=== PATIENT | female | born 1970 | race African-American/Black ===

== ENCOUNTER 2018-11-21 13:35 | Inpatient (IN) | payer OTHER ==
[2018-11-21 15:24] VITALS: BMI 32.5
--- NOTE | 2018-11-21 16:39 | HP ---
CIWA Score Nausea/Vomitin-No Nausea/No Vomiting Muscle Tremors: 2 Anxiety: 3 Agitation: 2 Paroxysmal Sweats: 2 Orientation: 1-Uncertain about Date Tacttile Disturbances: 2-Mild Itch/Numbness/Burn Auditory Disturbances: 0-None Visual Disturbances: 0-None Headache: 0-None Present CIWA-Ar Total Score: 12 - Admission Criteria OASAS Guidelines: Admission for Medically Managed Detox: Requires at least one of the followin. CIWA greater than 12 2. Seizures within the past 24 hours 3. Delirium tremens within the past 24 hours 4. Hallucinations within the past 24 hours 5. Acute intervention needed for co occurring medical disorder 6. Acute intervention needed for co occurring psychiatric disorder 7. Severe withdrawal that cannot be handled at a lower level of care (continued vomiting, continued diarrhea, abnormal vital signs) requiring intravenous medication and/or fluids 8. Patient presents the following: CIWA greater than 12 Admission Criteria Met: Admission criteria met Admission ROS S - HPI Chief Complaint: " I'm tire " Allergies/Adverse Reactions: Allergies Allergy/AdvReac Type Severity Reaction Status Date / Time No Known Allergies Allergy Verified 11/21/18 15:45 History of Present Illness: 48 yo male with hx of crack / cocaine , alcohol dependence is here seeking alcohol detox, d/t withdrawal symptoms . PMHX: Asthma, vertigo, HTN, fibroids Denies suicidal / homicidal ideation or hx of suicide attempt. Denies hx of DTS, blackout so seizures Longest period of sobriety four months Exam Limitations: No Limitations - Ebola screening Have you traveled outside of the country in the last 21 days: No Have you had contact with anyone from an Ebola affected area: No Have you been sick,other than usual withdrawal symptoms: No Do you have a fever: No - Review of Systems Constitutional: No Symptoms Reported EENT: reports: Other (runny nosr) Respiratory: reports: Cough (chronic reports d/t asthma), SOB with Exertion, Other (SOB with very cold air) Cardiac: reports: No Symptoms Reported GI: reports: Diarrhea : reports: No Symptoms Reported Musculoskeletal: reports: Back Pain Integumentary: reports: Other (athletes feet) Neuro: reports: Dizziness Endocrine: reports: Intolerance to Cold, Increased Thirst, Other (enlarge thyroid) Hematology: reports: See HPI, Anemia Psychiatric: reports: Orientated x3, Anxious Other Systems: Reviewed and Negative Patient History - Patient Medical History Hx Anemia: Yes (NO MEDS) Hx Asthma: Yes Hx Chronic Obstructive Pulmonary Disease (COPD): No Hx Cancer: No Hx Cardiac Disorders: No Hx Congestive Heart Failure: No Hx Hypertension: Yes Hx Hypercholesterolemia: No Hx Pacemaker: No HX Cerebrovascular Accident: No Hx Seizures: No Hx Dementia: No Hx Diabetes: No Hx Gastrointestinal Disorders: Yes (acid reflux) Hx Liver Disease: No Hx Genitourinary Disorders: No Hx Sexually Transmitted Disorders: No Hx Renal Disease (ESRD): No Hx Thyroid Disease: No Hx Human Immunodeficiency Virus (HIV): No (NEGATIVE HX) Hx Hepatitis C: No Hx Depression: No Hx Suicide Attempt: No Hx Bipolar Disorder: No Hx Schizophrenia: No - Patient Surgical History Past Surgical History: Yes Hx Neurologic Surgery: No Hx Cataract Extraction: No Hx Cardiac Surgery: No Hx Lung Surgery: No Hx Breast Surgery: No Hx Breast Biopsy: No Hx Appendectomy: No Hx Genitourinary Surgery: No Hx Section: Yes (X 1) Hx Orthopedic Surgery: No Anesthesia Reaction: No - PPD History Previous Implant?: Yes Documented Results: Negative w/o proof Implanted On Prior [facility] Admission?: No PPD to be Administered?: Yes - Reproductive History Last Menstrual Period: 11/04/18 Patient : Yes - Smoking Cessation Smoking history: Former smoker Have you smoked in the past 12 months: Yes Aproximately how many cigarettes per day: 5 If you are a former smoker, when did you quit?: 07/21/2018 Hx Chewing Tobacco Use: No Initiated information on smoking cessation: Yes 'Breaking Loose' booklet given: 11/21/18 - Substance & Tx. History Hx Alcohol Use: Yes Hx Substance Use: Yes Hx Substance Use Treatment: Yes (Detox [facility] April 2018) - Substances Abused Crack Route: Smoking Frequency: Daily Amount used: $100 Age of first use: 18 Date of Last Use: 11/21/18 Alcohol-beer/rum/vodka Route: Oral Frequency: Daily Amount used: 1 1/2-6 pks. or 1/2 pt. liquor Age of first use: 14 Date of Last Use: 11/21/18 Family Disease History - Family Disease History Family Disease History: Diabetes: Mother, Respiratory: Father () Admission Physical Exam BHS - Vital Signs Vital Signs: Vital Signs - 24 hr 11/21/18 15:19 Temperature 96.7 F L Pulse Rate 88 Respiratory 20 Rate Blood Pressure 140/78 - Physical General Appearance: Yes: Appropriately Dressed, Mild Distress, Obese, Anxious HEENTM: Yes: EOMI, Hearing grossly Normal, Normal ENT Inspection, Normocephalic , Normal Voice, ELYSIA, Pharynx Normal, Tm's normal, Rhinorrhea, Other (poor dentition) Respiratory: Yes: Chest Non-Tender, Lungs Clear, Normal Breath Sounds, No Respiratory Distress, No Accessory Muscle Use, Other (SOB with ambulation, no SOB at rest, reports normal status for her) Neck: Yes: Within Normal Limits Breast: Yes: Breast Exam Deferred Cardiology: Yes: Regular Rhythm, Regular Rate Abdominal: Yes: Normal Bowel Sounds, Non Tender, Soft, Protuberent Genitourinary: Yes: Within Normal Limits Musculoskeletal: Yes: Within Normal Limits Extremities: Yes: Normal Capillary Refill, Normal Inspection, Normal Range of Motion, Non-Tender Neurological: Yes: swing type lathe operator II-XII NML intact, Fully Oriented, Alert, Motor Strength 5/5, Depressed Affect Integumentary: Yes: Normal Color, Warm, Moist Lymphatic: Yes: Within Normal Limits - Diagnostic (1) Asthma Current Visit: Yes Status: Chronic Qualifiers: Asthma severity: severe Asthma persistence: persistent Asthma complication type: unspecified Qualified Code(s): J45.50 - Severe persistent asthma, uncomplicated (2) Alcohol dependence with uncomplicated withdrawal Current Visit: Yes Status: Acute (3) Cocaine dependence, uncomplicated Current Visit: Yes Status: Acute (4) GERD (gastroesophageal reflux disease) Current Visit: Yes Status: Chronic Qualifiers: Esophagitis presence: esophagitis presence not specified Qualified Code(s) : K21.9 - Gastro-esophageal reflux disease without esophagitis (5) Hypertension Current Visit: Yes Status: Chronic Qualifiers: Hypertension type: essential hypertension Qualified Code(s): I10 - Essential (primary) hypertension (6) History of anemia Current Visit: Yes Status: Suspected (7) Vertigo Current Visit: Yes Status: Chronic Cleared for Admission S - Detox or Rehab [facility] Level of Care: Medically Managed Detox Regimen/Protocol: Librium [facility] Breath Alcohol Content Breath Alcohol Content: 0 Urine Pregancy Test - Result Urine Test Results: Negative - NO Line Present Urine Drug Screen - Results Drug Screen Negative: No Urine Drug Screen Results: FAY-Cocaine Inpatient Rehab Admission - Rehab Decision to Admit Inpatient rehab admission?: No
[2018-11-21] MEDS ORDERED: chlordiazePOXIDE HCL 25 MG CAPSULE PO PRN (16:56)
[2018-11-21] MEDS ORDERED: MAGNESIUM HYDROX 2400MG/30ML ORAL SUSPENSION 30 ML CUP PO PRN (16:56)
[2018-11-21] MEDS ORDERED: MAGNESIUM CITRATE 300 ML BOTTLE PO PRN (16:56)
[2018-11-21] MEDS ORDERED: ALBUTEROL SO4 2.5/IPRATROPIUM 0.5 INH SOL 3 ML VIAL.NEB. NEB PRN (16:56)
[2018-11-21] MEDS ORDERED: ACETAMINOPHEN 325 MG TABLET (FP) PO PRN (16:56)
[2018-11-21] MEDS ORDERED: LOPERAMIDE HCL 2 MG CAPSULE PO PRN (16:56)
[2018-11-21] MEDS ORDERED: IBUPROFEN 400 MG TABLET (FP) PO PRN (16:56)
[2018-11-21] MEDS ORDERED: guaiFENesin/D-METHORPHAN HB 10 ML UNIT-DOSE CUPS PO PRN (16:56)
[2018-11-21] MEDS ORDERED: P-EPHED 60MG/TRIPROLIDI 2.5MG TABLET PO PRN (16:56)
[2018-11-21] MEDS ORDERED: MENTHOL/PHENOL 1 EACH UD MM PRN (16:56)
[2018-11-21] MEDS ORDERED: MAG HYDROX/AL HYDROX/SIMETH 30 ML UNIT-DOSE CUP PO PRN (16:56)
[2018-11-21] MEDS: ALBUTEROL SO4 8 GM HFA INHALER IH PRN ×2 (18:13→23:32)
[2018-11-21] MEDS: MELATONIN 5 MG TABLETS PO PRN (22:16)
[2018-11-21] MEDS: chlordiazePOXIDE HCL 25 MG CAPSULE PO SCH (22:16)
[2018-11-21] MEDS: THIAMINE HCL 100 MG TABLET (FP) PO SCH (22:16)
[2018-11-21] MEDS: IPRATROPIUM BROMIDE IH SCH (22:18)
[2018-11-21 23:00] LABS: URINE APPEARANCE CLEAR; URINE BILIRUBIN NEGATIVE (<2.0 mg/dL); URINE COLOR STRAW; URINE GLUCOSE (UA) 1+ (NEGATIVE); URINE KETONE NEGATIVE (NEGATIVE); URINE LEUK ESTERASE NEGATIVE (NEGATIVE); URINE NITRITE NEGATIVE (NEGATIVE); URINE PROTEIN NEGATIVE (NEGATIVE); URINE UROBILINOGEN NEGATIVE mg/dL (0.2-1.0)
[2018-11-22] MEDS: chlordiazePOXIDE HCL 25 MG CAPSULE PO SCH ×4 (06:01→22:18)
[2018-11-22] MEDS: ALBUTEROL SO4 8 GM HFA INHALER IH PRN ×2 (06:02→10:47)
[2018-11-22 10:32] LABS: ALK PHOS 76 U/L (45-117); ANION GAP 9 MMOL/L (8-16); BILIRUBIN,TOTAL 0.5 mg/dL (0.2-1); BLOOD UREA NITROGEN 11 mg/dL (7-18); CALCIUM 8.1 mg/dL (8.5-10.1); CHLORIDE 106 mmol/L (98-107); CO2 24 mmol/L (21-32); CREATININE 1.1 mg/dL (0.55-1.3); GLUCOSE,RANDOM 179 mg/dL (74-106); SGOT/AST 16 U/L (15-37); SGPT/ALT 16 U/L (13-61); SODIUM 139 mmol/L (136-145); TOT PROT 6.5 g/dl (6.4-8.2)
[2018-11-22] MEDS: RANITIDINE HCL 150 MG TABLET (FP) PO SCH (10:41)
[2018-11-22] MEDS: LORATADINE 10 MG TABLET PO SCH (10:41)
[2018-11-22] MEDS: MONTELUKAST NA 10 MG TABLET PO SCH (10:41)
[2018-11-22] MEDS: PRENATAL VITAMINS W/ FOLIC ACID TABLET (FP) PO SCH (10:43)
[2018-11-22] MEDS: PATIENT'S OWN MEDICATION (NON-FORMULARY) (Losartan/Hydrochlorothiazide [Losartan-Hctz 100- PO SCH (10:43)
[2018-11-22] MEDS: IPRATROPIUM BROMIDE IH SCH ×2 (10:48→22:18)
[2018-11-22 10:57] LABS: HEMATOCRIT 36.9 % (32.4-45.2); HEMOGLOBIN 11.5 GM/dL (10.7-15.3); MCH 23.7 pg (25.7-33.7); MCHC 31.2 g/dl (32.0-36.0); MEAN PLT VOLUME 9.1 fl (7.5-11.1); PLATELET COUNT 273 K/MM3 (134-434); RBC 4.85 M/mm3 (3.60-5.2); RDW 17.6 % (11.6-15.6); WHITE BLOOD COUNT 5.8 K/mm3 (4.0-10.0)
--- NOTE | 2018-11-22 11:46 | PN ---
[facility] CIWA - CIWA Score Nausea/Vomitin-No Nausea/No Vomiting Muscle Tremors: 2 Anxiety: 2 Agitation: 2 Paroxysmal Sweats: 1-Minimal Palms Moist Orientation: 1-Uncertain about Date Tacttile Disturbances: 0-None Auditory Disturbances: 0-None Visual Disturbances: 0-None Headache: 1-Very Mild CIWA-Ar Total Score: 9 S Progress Note (SOAP) Subjective: tremor anxiety restlessness sweating Objective: 11/22/18 12:45 Vital Signs Temperature 98.9 F 11/22/18 09:18 Pulse Rate 79 11/22/18 09:18 Respiratory Rate 18 11/22/18 09:18 Blood Pressure 111/68 11/22/18 09:18 O2 Sat by Pulse Oximetry (%) Laboratory Last Values WBC 5.8 K/mm3 (4.0-10.0) 11/22/18 07:00 RBC 4.85 M/mm3 (3.60-5.2) 11/22/18 07:00 Hgb 11.5 GM/dL (10.7-15.3) 11/22/18 07:00 Hct 36.9 % (32.4-45.2) 11/22/18 07:00 MCV 76.0 fl (80-96) L 11/22/18 07:00 MCH 23.7 pg (25.7-33.7) L 11/22/18 07:00 MCHC 31.2 g/dl (32.0-36.0) L 11/22/18 07:00 RDW 17.6 % (11.6-15.6) H 11/22/18 07:00 Plt Count 273 K/MM3 (134-434) 11/22/18 07:00 MPV 9.1 fl (7.5-11.1) 11/22/18 07:00 Sodium 139 mmol/L (136-145) 11/22/18 07:00 Potassium 4.0 mmol/L (3.5-5.1) 11/22/18 07:00 Chloride 106 mmol/L (98-107) 11/22/18 07:00 Carbon Dioxide 24 mmol/L (21-32) 11/22/18 07:00 Anion Gap 9 MMOL/L (8-16) 11/22/18 07:00 BUN 11 mg/dL (7-18) 11/22/18 07:00 Creatinine 1.1 mg/dL (0.55-1.3) 11/22/18 07:00 Creat Clearance w eGFR 52.79 (>60) 11/22/18 07:00 Random Glucose 179 mg/dL (74-106) H 11/22/18 07:00 Calcium 8.1 mg/dL (8.5-10.1) L 11/22/18 07:00 Total Bilirubin 0.5 mg/dL (0.2-1) 11/22/18 07:00 AST 16 U/L (15-37) 11/22/18 07:00 ALT 16 U/L (13-61) 11/22/18 07:00 Alkaline Phosphatase 76 U/L (45-117) 11/22/18 07:00 Total Protein 6.5 g/dl (6.4-8.2) 11/22/18 07:00 Albumin 3.0 g/dl (3.4-5.0) L 11/22/18 07:00 Urine Color Straw 11/21/18 22:45 Urine Appearance Clear 11/21/18 22:45 Urine pH 6.0 (5.0-8.0) 11/21/18 22:45 Ur Specific [place] 1.012 (1.010-1.035) 11/21/18 22:45 Urine Protein Negative (NEGATIVE) 11/21/18 22:45 Urine Glucose (UA) 1+ (NEGATIVE) H 11/21/18 22:45 Urine Ketones Negative (NEGATIVE) 11/21/18 22:45 Urine Blood Negative (NEGATIVE) 11/21/18 22:45 Urine Nitrite Negative (NEGATIVE) 11/21/18 22:45 Urine Bilirubin Negative (<2.0 mg/dL) 11/21/18 22:45 Urine Urobilinogen Negative mg/dL (0.2-1.0) 11/21/18 22:45 Ur Leukocyte Esterase Negative (NEGATIVE) 11/21/18 22:45 lab noted Assessment: 11/22/18 12:45 alcohol withdrawal sx Plan: continue detox
[2018-11-22] MEDS ORDERED: NICOTINE 21 MG/24 HOURS TOPICAL PATCH TD ONE (12:45)
[2018-11-22] MEDS: NIFEdipine E.R. 90 MG TABLET (FP) PO SCH (15:31)
[2018-11-22] MEDS: THIAMINE HCL 100 MG TABLET (FP) PO SCH (22:17)
[2018-11-22] MEDS: MELATONIN 5 MG TABLETS PO PRN (22:18)
[2018-11-23] MEDS: chlordiazePOXIDE HCL 25 MG CAPSULE PO SCH ×3 (05:37→17:45)
[2018-11-23] MEDS: NIFEdipine E.R. 90 MG TABLET (FP) PO SCH (10:34)
[2018-11-23] MEDS: MONTELUKAST NA 10 MG TABLET PO SCH (10:34)
[2018-11-23] MEDS: RANITIDINE HCL 150 MG TABLET (FP) PO SCH (10:34)
[2018-11-23] MEDS: LORATADINE 10 MG TABLET PO SCH (10:34)
[2018-11-23] MEDS: PATIENT'S OWN MEDICATION (NON-FORMULARY) (Losartan/Hydrochlorothiazide [Losartan-Hctz 100- PO SCH (10:35)
[2018-11-23] MEDS: IPRATROPIUM BROMIDE IH SCH ×2 (10:39→22:30)
[2018-11-23] MEDS: PRENATAL VITAMINS W/ FOLIC ACID TABLET (FP) PO SCH (10:39)
--- NOTE | 2018-11-23 10:45 | PN ---
[facility] CIWA - CIWA Score Nausea/Vomitin-No Nausea/No Vomiting Muscle Tremors: 2 Anxiety: 1-Mildly Anxious Agitation: 1-Slight > Activity Paroxysmal Sweats: 1-Minimal Palms Moist Orientation: 1-Uncertain about Date Tacttile Disturbances: 0-None Auditory Disturbances: 0-None Visual Disturbances: 0-None Headache: 1-Very Mild CIWA-Ar Total Score: 7 S Progress Note (SOAP) Subjective: tremor sweating headache anxiety Objective: 11/23/18 10:46 Vital Signs Temperature 97.3 F L 11/23/18 09:33 Pulse Rate 77 11/23/18 09:33 Respiratory Rate 18 11/23/18 09:33 Blood Pressure 128/75 11/23/18 09:33 O2 Sat by Pulse Oximetry (%) Laboratory Last Values WBC 5.8 K/mm3 (4.0-10.0) 11/22/18 07:00 RBC 4.85 M/mm3 (3.60-5.2) 11/22/18 07:00 Hgb 11.5 GM/dL (10.7-15.3) 11/22/18 07:00 Hct 36.9 % (32.4-45.2) 11/22/18 07:00 MCV 76.0 fl (80-96) L 11/22/18 07:00 MCH 23.7 pg (25.7-33.7) L 11/22/18 07:00 MCHC 31.2 g/dl (32.0-36.0) L 11/22/18 07:00 RDW 17.6 % (11.6-15.6) H 11/22/18 07:00 Plt Count 273 K/MM3 (134-434) 11/22/18 07:00 MPV 9.1 fl (7.5-11.1) 11/22/18 07:00 Sodium 139 mmol/L (136-145) 11/22/18 07:00 Potassium 4.0 mmol/L (3.5-5.1) 11/22/18 07:00 Chloride 106 mmol/L (98-107) 11/22/18 07:00 Carbon Dioxide 24 mmol/L (21-32) 11/22/18 07:00 Anion Gap 9 MMOL/L (8-16) 11/22/18 07:00 BUN 11 mg/dL (7-18) 11/22/18 07:00 Creatinine 1.1 mg/dL (0.55-1.3) 11/22/18 07:00 Creat Clearance w eGFR 52.79 (>60) 11/22/18 07:00 Random Glucose 179 mg/dL (74-106) H 11/22/18 07:00 Calcium 8.1 mg/dL (8.5-10.1) L 11/22/18 07:00 Total Bilirubin 0.5 mg/dL (0.2-1) 11/22/18 07:00 AST 16 U/L (15-37) 11/22/18 07:00 ALT 16 U/L (13-61) 11/22/18 07:00 Alkaline Phosphatase 76 U/L (45-117) 11/22/18 07:00 Total Protein 6.5 g/dl (6.4-8.2) 11/22/18 07:00 Albumin 3.0 g/dl (3.4-5.0) L 11/22/18 07:00 Urine Color Straw 11/21/18 22:45 Urine Appearance Clear 11/21/18 22:45 Urine pH 6.0 (5.0-8.0) 11/21/18 22:45 Ur Specific [place] 1.012 (1.010-1.035) 11/21/18 22:45 Urine Protein Negative (NEGATIVE) 11/21/18 22:45 Urine Glucose (UA) 1+ (NEGATIVE) H 11/21/18 22:45 Urine Ketones Negative (NEGATIVE) 11/21/18 22:45 Urine Blood Negative (NEGATIVE) 11/21/18 22:45 Urine Nitrite Negative (NEGATIVE) 11/21/18 22:45 Urine Bilirubin Negative (<2.0 mg/dL) 11/21/18 22:45 Urine Urobilinogen Negative mg/dL (0.2-1.0) 11/21/18 22:45 Ur Leukocyte Esterase Negative (NEGATIVE) 11/21/18 22:45 RPR Titer Nonreactive (NONREACTIVE) 11/22/18 07:00 lab noted Assessment: 11/23/18 10:47 withdrawal sx Plan: continue detox
[2018-11-23] MEDS: ALBUTEROL SO4 8 GM HFA INHALER IH PRN ×2 (17:46→22:31)
[2018-11-23] MEDS: THIAMINE HCL 100 MG TABLET (FP) PO SCH (22:26)
[2018-11-23] MEDS: chlordiazePOXIDE 5 MG CAPSULE PO SCH (22:28)
[2018-11-24] MEDS: chlordiazePOXIDE 5 MG CAPSULE PO SCH ×3 (04:44→17:26)
[2018-11-24] MEDS: PRENATAL VITAMINS W/ FOLIC ACID TABLET (FP) PO SCH (10:32)
[2018-11-24] MEDS: MECLIZINE HCL 25 MG TABLET (FP) PO PRN (10:32)
[2018-11-24] MEDS: NIFEdipine E.R. 90 MG TABLET (FP) PO SCH (10:32)
[2018-11-24] MEDS: LORATADINE 10 MG TABLET PO SCH (10:32)
[2018-11-24] MEDS: RANITIDINE HCL 150 MG TABLET (FP) PO SCH (10:32)
[2018-11-24] MEDS: MONTELUKAST NA 10 MG TABLET PO SCH (10:32)
[2018-11-24] MEDS: ALBUTEROL SO4 8 GM HFA INHALER IH PRN ×2 (10:32→23:18)
[2018-11-24] MEDS: PATIENT'S OWN MEDICATION (NON-FORMULARY) (Losartan/Hydrochlorothiazide [Losartan-Hctz 100- PO SCH (10:33)
[2018-11-24] MEDS: IPRATROPIUM BROMIDE IH SCH ×2 (10:33→22:46)
--- NOTE | 2018-11-24 14:41 | PN ---
BHS COWS - Scale Resting Pulse: 0= OK 80 or Below Sweatin= Chills/Flushing Restless Observation: 0= Sits Still Pupil Size: 0= Normal to Room Light Bone or Joint Aches: 1= Mild Discomfort Runny Nose/ Eye Tearin= Nasal Congestion GI Upset > 30mins: 0= None Tremor Observation of Outstretched Hands: 0= None Yawning Observation: 1= 1-2x During Session Anxiety or Irritability: 1=Feels Anxious/Irritable Goose Flesh Skin: 0=Smooth Skin COWS Score: 5 BHS Progress Note (SOAP) Subjective: feeling better mild body ache less tremor patient preferred to be discharged tomorrow that counselor referral aftercare is well fit to her test pending Objective: 11/24/18 14:42 Vital Signs Temperature 97.6 F 11/24/18 13:19 Pulse Rate 83 11/24/18 13:19 Respiratory Rate 18 11/24/18 13:19 Blood Pressure 128/79 11/24/18 13:19 O2 Sat by Pulse Oximetry (%) Laboratory Last Values WBC 5.8 K/mm3 (4.0-10.0) 11/22/18 07:00 RBC 4.85 M/mm3 (3.60-5.2) 11/22/18 07:00 Hgb 11.5 GM/dL (10.7-15.3) 11/22/18 07:00 Hct 36.9 % (32.4-45.2) 11/22/18 07:00 MCV 76.0 fl (80-96) L 11/22/18 07:00 MCH 23.7 pg (25.7-33.7) L 11/22/18 07:00 MCHC 31.2 g/dl (32.0-36.0) L 11/22/18 07:00 RDW 17.6 % (11.6-15.6) H 11/22/18 07:00 Plt Count 273 K/MM3 (134-434) 11/22/18 07:00 MPV 9.1 fl (7.5-11.1) 11/22/18 07:00 Sodium 139 mmol/L (136-145) 11/22/18 07:00 Potassium 4.0 mmol/L (3.5-5.1) 11/22/18 07:00 Chloride 106 mmol/L (98-107) 11/22/18 07:00 Carbon Dioxide 24 mmol/L (21-32) 11/22/18 07:00 Anion Gap 9 MMOL/L (8-16) 11/22/18 07:00 BUN 11 mg/dL (7-18) 11/22/18 07:00 Creatinine 1.1 mg/dL (0.55-1.3) 11/22/18 07:00 Creat Clearance w eGFR 52.79 (>60) 11/22/18 07:00 Random Glucose 179 mg/dL (74-106) H 11/22/18 07:00 Hemoglobin A1c % 7.4 % (4.2-6.3) H 11/23/18 06:00 Calcium 8.1 mg/dL (8.5-10.1) L 11/22/18 07:00 Total Bilirubin 0.5 mg/dL (0.2-1) 11/22/18 07:00 AST 16 U/L (15-37) 11/22/18 07:00 ALT 16 U/L (13-61) 11/22/18 07:00 Alkaline Phosphatase 76 U/L (45-117) 11/22/18 07:00 Total Protein 6.5 g/dl (6.4-8.2) 11/22/18 07:00 Albumin 3.0 g/dl (3.4-5.0) L 11/22/18 07:00 Urine Color Straw 11/21/18 22:45 Urine Appearance Clear 11/21/18 22:45 Urine pH 6.0 (5.0-8.0) 11/21/18 22:45 Ur Specific [place] 1.012 (1.010-1.035) 11/21/18 22:45 Urine Protein Negative (NEGATIVE) 11/21/18 22:45 Urine Glucose (UA) 1+ (NEGATIVE) H 11/21/18 22:45 Urine Ketones Negative (NEGATIVE) 11/21/18 22:45 Urine Blood Negative (NEGATIVE) 11/21/18 22:45 Urine Nitrite Negative (NEGATIVE) 11/21/18 22:45 Urine Bilirubin Negative (<2.0 mg/dL) 11/21/18 22:45 Urine Urobilinogen Negative mg/dL (0.2-1.0) 11/21/18 22:45 Ur Leukocyte Esterase Negative (NEGATIVE) 11/21/18 22:45 RPR Titer Nonreactive (NONREACTIVE) 11/22/18 07:00 lab noted Assessment: 11/24/18 14:46 mild withdrawal sx Plan: continue detox
[2018-11-24] MEDS: chlordiazePOXIDE HCL 10 MG CAPSULE PO SCH (22:46)
[2018-11-24] MEDS: THIAMINE HCL 100 MG TABLET (FP) PO SCH (22:46)
[2018-11-25] MEDS: chlordiazePOXIDE HCL 10 MG CAPSULE PO SCH ×2 (06:00→10:43)
[2018-11-25] MEDS: PRENATAL VITAMINS W/ FOLIC ACID TABLET (FP) PO SCH (10:41)
[2018-11-25] MEDS: NIFEdipine E.R. 90 MG TABLET (FP) PO SCH (10:41)
[2018-11-25] MEDS: PATIENT'S OWN MEDICATION (NON-FORMULARY) (Losartan/Hydrochlorothiazide [Losartan-Hctz 100- PO SCH (10:42)
[2018-11-25] MEDS: IPRATROPIUM BROMIDE IH SCH (10:42)
[2018-11-25] MEDS: LORATADINE 10 MG TABLET PO SCH (10:43)
[2018-11-25] MEDS: RANITIDINE HCL 150 MG TABLET (FP) PO SCH (10:43)
[2018-11-25] MEDS: MONTELUKAST NA 10 MG TABLET PO SCH (10:43)
[2018-11-25] MEDS: ALBUTEROL SO4 8 GM HFA INHALER IH PRN ×2 (10:44→14:32)
[2018-11-25] MEDS: MECLIZINE HCL 25 MG TABLET (FP) PO PRN (10:44)
[2018-11-25] MEDS ORDERED: BACITRACIN 0.9 GM PACKET TP SCH (12:00)
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
[2018-11-25 13:35] VITALS: BP 120/72; PULSE 79; TEMP 97.1
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
== END 2018-11-25 14:43 | DRG 774 ==
LOC: YASAS 13:35 → Y3N 16:58
PROVIDERS: ADMIT Surgery; ATTEND Surgery
PROC: HZ2ZZZZ Detoxification Services for Substance Abuse Treatment (ICD-10-PCS; principal; 2018-11-21)
DX: F10.230 Alcohol dependence with withdrawal, uncomplicated (principal); F14.20 Cocaine dependence, uncomplicated; F17.210 Nicotine dependence, cigarettes, uncomplicated; F63.9 Impulse disorder, unspecified; I10 Essential (primary) hypertension; J45.50 Severe persistent asthma, uncomplicated; K21.9 Gastro-esophageal reflux disease without esophagitis; R42 Dizziness and giddiness; Z86.2 Personal history of diseases of the blood and blood-forming organs and certain disorders involving the immune mechanism; Z91.5 Personal history of self-harm
CPT/HCPCS: 36415; 80053; 81003; 83036; 85027; 86593